=== PATIENT | male | born 1950 | race Caucasian/White ===

== ENCOUNTER 2025-06-09 12:33 | Outpatient (CLI) | payer MEDICARE | END 2025-06-09 12:34 | disposition home or self-care (01) | LOC: CSHWCC 12:33 | PROVIDERS: ATTEND Nurse Practitioner Family | DX: I87.333 Chronic venous hypertension (idiopathic) with ulcer and inflammation of bilateral lower extremity (principal); L97.821 Non-pressure chronic ulcer of other part of left lower leg limited to breakdown of skin; L97.811 Non-pressure chronic ulcer of other part of right lower leg limited to breakdown of skin; G90.09 Other idiopathic peripheral autonomic neuropathy | CPT/HCPCS: 11042; 11045; G0463; 99213 ==

== ENCOUNTER 2025-06-11 10:21 | Outpatient (CLI) | payer MEDICARE | END 2025-06-11 10:22 | disposition home or self-care (01) | LOC: CSHWCC 10:21 | PROVIDERS: ATTEND Nurse Practitioner Family | DX: I87.333 Chronic venous hypertension (idiopathic) with ulcer and inflammation of bilateral lower extremity (principal); L97.821 Non-pressure chronic ulcer of other part of left lower leg limited to breakdown of skin; L97.811 Non-pressure chronic ulcer of other part of right lower leg limited to breakdown of skin; G90.09 Other idiopathic peripheral autonomic neuropathy | CPT/HCPCS: 99211; G0463 ==

== ENCOUNTER 2025-06-30 11:38 | Outpatient (CLI) | payer MEDICARE | END 2025-06-30 11:39 | disposition home or self-care (01) | LOC: CSHWCC 11:38 | PROVIDERS: ATTEND Nurse Practitioner Family | DX: I87.333 Chronic venous hypertension (idiopathic) with ulcer and inflammation of bilateral lower extremity (principal); L97.821 Non-pressure chronic ulcer of other part of left lower leg limited to breakdown of skin; L97.811 Non-pressure chronic ulcer of other part of right lower leg limited to breakdown of skin; G90.09 Other idiopathic peripheral autonomic neuropathy | CPT/HCPCS: 11042; 11045 ==

== ENCOUNTER 2025-07-07 11:04 | Outpatient (CLI) | payer MEDICARE | END 2025-07-07 11:05 | disposition home or self-care (01) | LOC: CSHWCC 11:04 | PROVIDERS: ATTEND Nurse Practitioner Family | DX: I87.333 Chronic venous hypertension (idiopathic) with ulcer and inflammation of bilateral lower extremity (principal); L97.811 Non-pressure chronic ulcer of other part of right lower leg limited to breakdown of skin; L97.821 Non-pressure chronic ulcer of other part of left lower leg limited to breakdown of skin; G90.09 Other idiopathic peripheral autonomic neuropathy | CPT/HCPCS: 11042; 11045 ==

== ENCOUNTER 2025-07-28 09:55 | Outpatient (CLI) | payer MEDICARE | END 2025-07-28 09:56 | disposition home or self-care (01) | LOC: CSHWCC 09:55 | PROVIDERS: ATTEND Nurse Practitioner Family | DX: I87.333 Chronic venous hypertension (idiopathic) with ulcer and inflammation of bilateral lower extremity (principal); L97.821 Non-pressure chronic ulcer of other part of left lower leg limited to breakdown of skin; L97.811 Non-pressure chronic ulcer of other part of right lower leg limited to breakdown of skin; G90.09 Other idiopathic peripheral autonomic neuropathy; L08.9 Local infection of the skin and subcutaneous tissue, unspecified | CPT/HCPCS: 11042; 11045 ==

== ENCOUNTER 2025-08-08 10:14 | Outpatient (CLI) | payer MEDICARE | END 2025-08-08 10:15 | disposition home or self-care (01) | LOC: CSHWCC 10:14 | PROVIDERS: ATTEND Nurse Practitioner Family | DX: I87.333 Chronic venous hypertension (idiopathic) with ulcer and inflammation of bilateral lower extremity (principal); L97.821 Non-pressure chronic ulcer of other part of left lower leg limited to breakdown of skin; L97.811 Non-pressure chronic ulcer of other part of right lower leg limited to breakdown of skin; L08.9 Local infection of the skin and subcutaneous tissue, unspecified; G90.09 Other idiopathic peripheral autonomic neuropathy | CPT/HCPCS: 11042; G0463; 99214 ==

== ENCOUNTER 2025-08-15 10:11 | Outpatient (CLI) | payer MEDICARE | END 2025-08-15 10:12 | disposition home or self-care (01) | LOC: CSHWCC 10:11 | PROVIDERS: ATTEND Family Medicine | DX: I87.333 Chronic venous hypertension (idiopathic) with ulcer and inflammation of bilateral lower extremity (principal); L97.821 Non-pressure chronic ulcer of other part of left lower leg limited to breakdown of skin; L97.811 Non-pressure chronic ulcer of other part of right lower leg limited to breakdown of skin; G90.09 Other idiopathic peripheral autonomic neuropathy; L08.9 Local infection of the skin and subcutaneous tissue, unspecified | CPT/HCPCS: 97597; 97598 ==